=== PATIENT | male | born 2000 | race Caucasian/White ===

== ENCOUNTER 2021-05-11 12:36 | Inpatient (IN) | payer OTHER ==
[~2021-05-11 12:36] MED LIST: Iopamidol 370 76% 50 ML VIAL FS ONE; Iopamidol-370 76% 500 ML 1 ML ONE; Rocuronium Bromide 10 MG/ML (10ML VIAL) ONE
[2021-05-11] MEDS ORDERED: levETIRAcetam in NS 200 ML ONE (12:39)
[2021-05-11] MEDS ORDERED: CEFAZOLIN 1 GM VIAL ONE (12:39)
[2021-05-11] MEDS ORDERED: Midazolam HCl 2 mg/2 ml Vial ONE ×3 (12:47→13:25)
[2021-05-11] MEDS ORDERED: Tranexamic Acid 1,000 MG/10 ML VIAL ONE ×2 (12:54→13:25)
[2021-05-11] MEDS ORDERED: Fentanyl 100 MCG/2 ML VIAL ONE ×4 (12:59→13:41)
[2021-05-11] MEDS ORDERED: Calcium Gluc 4.6 MEQ/10 ML (100 MG/ML) ONE (13:02)
[2021-05-11] MEDS ORDERED: TETANUS AND DIPHTHERIA TOX/PF 0.5 ML DISP.SYRIN IM ONE (13:09)
[2021-05-11] MEDS ORDERED: hydrALAZINE 20 MG/ML VIAL SLOW IVP PRN (13:09)
[2021-05-11] MEDS ORDERED: Morphine 2 MG/ML VIAL SLOW IVP PRN (13:09)
[2021-05-11] MEDS ORDERED: Dextrose 5% in Water 1,000 ML IV PRN (13:09)
[2021-05-11] MEDS ORDERED: Ondansetron PF 4 MG/2 ML Vial IVP PRN (13:09)
[2021-05-11] MEDS ORDERED: Dextrose 50% Abboject 50 ML SYRINGE SLOW IVP PRN (13:09)
[2021-05-11] MEDS ORDERED: fentaNYL Citrate/PF 2,000 MCG in Sodium Chloride 0.9% 60 ML IV PRN (13:12)
[2021-05-11 13:14] LABS: #Eosinphils 0.1 thou/uL (0.0-0.7); #Lymphocytes 2.4 thou/uL (1.20-3.40); #Monocytes 0.6 thou/uL (0.11-0.59); #Neutrophils 13.8 thou/uL (1.40-6.50); %Basophils 0.3 % (0.0-1.0); %Eosinophils 0.3 % (0.0-10.0); %Monocytes 3.6 % (0.0-4.0); %Neutrophils 81.8 % (31.0-61.0); Hemoglobin 14.5 g/dL (14.0-18.0); Mean Corpuscular HGB CONC 34.6 g/dL (32.0-36.0); Mean Corpuscular Hemoglobin 30.5 pg (25.0-35.0); Mean Corpuscular Volume 88.1 fL (78.0-98.0); Mean Platelet Volume 7.8 fL (7.4-10.4); Platelet Count 174 thou/uL (130-400); RBC Distribution Width 11.5 % (11.5-14.5); Red Blood Cell (RBC) Count 4.75 mill/uL (4.00-5.20); White Blood Cell (WBC) Count 16.9 thou/uL (4.8-10.8)
[2021-05-11] MEDS ORDERED: Lidocaine 1% (PF) 30 ML VIAL ONE (13:25)
[2021-05-11 13:27] LABS: ALT (SGPT) 105 U/L (8-55); AST (SGOT) 111 U/L (10-45); Albumin 3.8 g/dL (3.5-5.0); Alkaline Phosphatase 60 U/L (50-130); Anion Gap 15 mmol/L (10-20); BUN (Urea Nitrogen) 13 mg/dL (8.4-21.0); Bilirubin, Total 0.4 mg/dL (0.2-1.2); Calc. Creatinine Clearance 0 mL/min (70-130); Calcium 8.2 mg/dL (7.8-10.44); Carbon Dioxide 22 mmol/L (22-29); Chloride 104 mmol/L (98-107); Globulin 2.3 g/dL (2.4-3.5); Glucose 215 mg/dL (70-105); Lipase 41 U/L (8-78); Protein, Total 6.1 g/dL (6.0-8.3); Sodium 138 mmol/L (136-145)
[2021-05-11] MEDS ORDERED: Fentanyl CADD 100 ML IV SCH (13:30)
[2021-05-11 13:53] LABS: INR-International Normal Ratio 1.1; Prothrombin Time 14.4 sec (12.0-14.7)
[2021-05-11 13:54] LABS: PTT 25.5 sec (22.9-36.1)
[2021-05-11] MEDS ORDERED: Boostrix 0.5 ML (Tdap) VIAL ONE (14:10)
[2021-05-11] MEDS ORDERED: Rocuronium Bromide 10 MG/ML (10ML VIAL) ONE (14:56)
[2021-05-11 15:29] LABS: Actual Bicarbonate (HCO3a) 21.4 mEq/L (22-28); Base Excess (BEa) -2.3 mEq/L (-2.0 to +3.0); CO2 Tension 34.1 mmHg (35.0-45.0); Calcium, Ionized (arterial) 1.14 mmol/L (1.12-1.30); Carboxyhemoglobin (COHb) 0.9 gm% (0.0-3.0); Hemoglobin (Hb) 15.1 g/dL (11.4-15.4); O2 Tension (PaO2), arterial 147.3 mmHg (80.0-100.0); Potassium - ABG Lab 3.68 mmol/L (3.70-5.30); pH, Arterial 7.42 (7.35-7.45)
[2021-05-11 15:31] LABS: ALV-art Gradient 95.275 mmHg (0-20); Puncture Site RRA
[2021-05-11 15:53] LABS: Lactic Acid 2.3 mmol/L (0.5-2.2)
[2021-05-11 17:01] LABS: SARS-CoV-2 NAA Rapid Test Not Detected (NotDetected)
[2021-05-11] MEDS ORDERED: NS 0.9% w/ 20 MEQ KCL 1,000 ML/1,000 ML BAG IV SCH (18:45)
[2021-05-11] MEDS ORDERED: Potassium Chloride 10 MEQ in Premix Bag 1 BAG IVPB SCH (20:00)
[2021-05-11] MEDS: Famotidine/PF 20 mg/2ml Vial SLOW IVP SCH (20:52)
[2021-05-11] MEDS ORDERED: Acetaminophen 650 MG/20.3 ML UDCUP PO SCH (22:15)
[2021-05-12] MEDS: Acetaminophen 650 MG/20.3 ML UDCUP PO SCH ×5 (00:05→23:15)
[2021-05-12 01:30] LABS: Hemoglobin 13.2 g/dL (14.0-18.0)
[2021-05-12] MEDS ORDERED: Sodium Chloride 0.9% 500 ML IV SCH (03:15)
[2021-05-12] MEDS: NS 0.9% w/ 20 MEQ KCL 1,000 ML/1,000 ML BAG IV SCH ×3 (03:18→20:27)
[2021-05-12 04:38] LABS: #Lymphocytes 1.4 thou/uL (1.20-3.40); #Monocytes 1.7 thou/uL (0.11-0.59); #Neutrophils 10.7 thou/uL (1.40-6.50); %Basophils 0.3 % (0.0-1.0); %Eosinophils 0.1 % (0.0-10.0); %Lymphocytes 9.9 % (28.0-48.0); %Monocytes 12.1 % (0.0-4.0); %Neutrophils 77.6 % (31.0-61.0); Hemoglobin 11.5 g/dL (14.0-18.0); Mean Corpuscular HGB CONC 34.2 g/dL (32.0-36.0); Mean Corpuscular Hemoglobin 30.2 pg (25.0-35.0); Mean Corpuscular Volume 88.4 fL (78.0-98.0); Mean Platelet Volume 8.6 fL (7.4-10.4); Platelet Count 169 thou/uL (130-400); RBC Distribution Width 11.4 % (11.5-14.5); White Blood Cell (WBC) Count 13.8 thou/uL (4.8-10.8)
[2021-05-12 04:41] LABS: Lactic Acid 1.2 mmol/L (0.5-2.2)
[2021-05-12 04:57] LABS: Anion Gap 12 mmol/L (10-20); BUN (Urea Nitrogen) 16 mg/dL (8.4-21.0); CK (CPK) 778 U/L (30-200); Calc. Creatinine Clearance 156 mL/min (70-130); Calcium 7.8 mg/dL (7.8-10.44); Carbon Dioxide 24 mmol/L (22-29); Chloride 107 mmol/L (98-107); Glucose 141 mg/dL (70-105); Magnesium 1.7 mg/dL (1.7-2.2); Potassium 4.2 mmol/L (3.5-5.1); Sodium 139 mmol/L (136-145)
[2021-05-12 04:59] LABS: Phosphorus 3.7 mg/dL (2.3-4.7)
[2021-05-12 07:34] LABS: Actual Bicarbonate (HCO3a) 23.4 mEq/L (22-28); Base Excess (BEa) -0.6 mEq/L (-2.0 to +3.0); CO2 Tension 36.2 mmHg (35.0-45.0); Calcium, Ionized (arterial) 1.09 mmol/L (1.12-1.30); Hemoglobin (Hb) 12.1 g/dL (11.4-15.4); O2 Tension (PaO2), arterial 160.9 mmHg (80.0-100.0); Potassium - ABG Lab 4.25 mmol/L (3.70-5.30); pH, Arterial 7.43 (7.35-7.45)
[2021-05-12 07:35] LABS: Puncture Site RRA
[2021-05-12] MEDS: Famotidine/PF 20 mg/2ml Vial SLOW IVP SCH ×2 (07:42→20:34)
[2021-05-12] MEDS ORDERED: Magnesium 2 GM/50 ML 2 GM in Premix Bag 1 BAG IVPB SCH (09:00)
[2021-05-12] MEDS ORDERED: Morphine 4 MG/ML VIAL SLOW IVP PRN ×2 (11:19→11:45)
[2021-05-12] MEDS ORDERED: Morphine 2 MG/ML VIAL SLOW IVP PRN (11:19)
[2021-05-12] MEDS ORDERED: traMADol HCl 50 MG TAB PO PRN (11:24)
[2021-05-12] MEDS ORDERED: traMADol HCl 50 MG TAB PO SCH (11:30)
[2021-05-12] MEDS: Acetaminophen/Codeine 30-300mg Tablet PO PRN (23:17)
[2021-05-13] MEDS: Morphine 4 MG/ML VIAL SLOW IVP PRN (03:07)
[2021-05-13] MEDS: NS 0.9% w/ 20 MEQ KCL 1,000 ML/1,000 ML BAG IV SCH ×3 (03:36→21:47)
[2021-05-13 04:42] LABS: #Eosinphils 0.1 thou/uL (0.0-0.7); #Lymphocytes 1.6 thou/uL (1.20-3.40); %Basophils 0.4 % (0.0-1.0); %Eosinophils 0.6 % (0.0-10.0); %Lymphocytes 16.6 % (28.0-48.0); %Neutrophils 72.4 % (31.0-61.0); Hemoglobin 9.7 g/dL (14.0-18.0); Mean Corpuscular HGB CONC 36.3 g/dL (32.0-36.0); Mean Corpuscular Hemoglobin 32.2 pg (25.0-35.0); Mean Corpuscular Volume 88.6 fL (78.0-98.0); Mean Platelet Volume 8.6 fL (7.4-10.4); Platelet Count 134 thou/uL (130-400); RBC Distribution Width 11.3 % (11.5-14.5); Red Blood Cell (RBC) Count 3.02 mill/uL (4.00-5.20); White Blood Cell (WBC) Count 9.7 thou/uL (4.8-10.8)
[2021-05-13 05:12] LABS: Anion Gap 9 mmol/L (10-20); BUN (Urea Nitrogen) 12 mg/dL (8.4-21.0); CK (CPK) 1083 U/L (30-200); Calc. Creatinine Clearance 188 mL/min (70-130); Calcium 8.1 mg/dL (7.8-10.44); Carbon Dioxide 25 mmol/L (22-29); Chloride 106 mmol/L (98-107); Glucose 130 mg/dL (70-105); Magnesium 1.9 mg/dL (1.7-2.2); Phosphorus 1.4 mg/dL (2.3-4.7); Potassium 3.6 mmol/L (3.5-5.1); Sodium 136 mmol/L (136-145)
[2021-05-13] MEDS: Acetaminophen 650 MG/20.3 ML UDCUP PO SCH ×4 (05:45→21:24)
[2021-05-13] MEDS: Cyclobenzaprine 10 MG TAB PO PRN ×3 (05:51→21:23)
[2021-05-13] MEDS ORDERED: Potassium Phosphate 30 MMOL in Sodium Chloride 0.9% 250 ML 250 ML IVPB SCH (06:00)
[2021-05-13 06:28] VITALS: BMI 28.6
[2021-05-13] MEDS ORDERED: Magnesium 2 GM/50 ML 2 GM in Premix Bag 1 BAG IVPB SCH (08:30)
[2021-05-13] MEDS: Senokot S 8.6-50 MG TAB PO SCH ×2 (08:55→21:23)
[2021-05-13] MEDS: Polyethylene Glycol 3350 17 GM Packet PO SCH (08:55)
[2021-05-13] MEDS: Famotidine 20 MG TAB PO SCH ×2 (08:55→21:23)
[2021-05-13] MEDS: Acetaminophen/Codeine 30-300mg Tablet PO PRN ×3 (09:13→22:37)
[2021-05-14] MEDS: Morphine 4 MG/ML VIAL SLOW IVP PRN (02:53)
[2021-05-14] MEDS: NS 0.9% w/ 20 MEQ KCL 1,000 ML/1,000 ML BAG IV SCH (02:54)
[2021-05-14 03:51] LABS: #Lymphocytes 1.2 thou/uL (1.20-3.40); #Monocytes 0.9 thou/uL (0.11-0.59); #Neutrophils 4.7 thou/uL (1.40-6.50); %Basophils 0.7 % (0.0-1.0); %Eosinophils 0.7 % (0.0-10.0); %Lymphocytes 17.3 % (28.0-48.0); %Neutrophils 68.3 % (31.0-61.0); Hemoglobin 9.6 g/dL (14.0-18.0); Mean Corpuscular HGB CONC 35.9 g/dL (32.0-36.0); Mean Corpuscular Hemoglobin 31.6 pg (25.0-35.0); Mean Corpuscular Volume 87.8 fL (78.0-98.0); Mean Platelet Volume 8.5 fL (7.4-10.4); Platelet Count 146 thou/uL (130-400); RBC Distribution Width 11.1 % (11.5-14.5); Red Blood Cell (RBC) Count 3.05 mill/uL (4.00-5.20); White Blood Cell (WBC) Count 6.9 thou/uL (4.8-10.8)
[2021-05-14 04:08] LABS: Anion Gap 9 mmol/L (10-20); BUN (Urea Nitrogen) 7 mg/dL (8.4-21.0); CK (CPK) 924 U/L (30-200); Calc. Creatinine Clearance 211 mL/min (70-130); Calcium 8.8 mg/dL (7.8-10.44); Carbon Dioxide 29 mmol/L (22-29); Chloride 104 mmol/L (98-107); Glucose 113 mg/dL (70-105); Magnesium 1.8 mg/dL (1.7-2.2); Phosphorus 2.3 mg/dL (2.3-4.7); Potassium 3.2 mmol/L (3.5-5.1); Sodium 139 mmol/L (136-145)
[2021-05-14] MEDS: Acetaminophen 650 MG/20.3 ML UDCUP PO SCH (05:27)
[2021-05-14] MEDS: Cyclobenzaprine 10 MG TAB PO PRN (05:27)
[2021-05-14] MEDS: Acetaminophen/Codeine 30-300mg Tablet PO PRN (05:29)
[2021-05-14 07:24] VITALS: TEMP 97.9
[2021-05-14] MEDS: Senokot S 8.6-50 MG TAB PO SCH (08:02)
[2021-05-14] MEDS: Polyethylene Glycol 3350 17 GM Packet PO SCH (08:02)
[2021-05-14] MEDS: Famotidine 20 MG TAB PO SCH (08:02)
[2021-05-14] MEDS ORDERED: Ascorbic Acid 500 mg Chewable Tablet PO SCH (08:45)
[2021-05-14] MEDS ORDERED: Ferrous Sulfate 325 MG TAB PO SCH ×2 (08:45→17:00)
[2021-05-14] MEDS ORDERED: FLU VACC QS2021-22(6MOS UP)/PF 60 MCG/0.5 ML SYRINGE IM ONE (09:00)
[2021-05-14] MEDS ORDERED: Potassium Phosphate 30 MMOL, Magnesium Sulfate 2 GM in Sodium Chloride 0.9% 250 ML IVPB SCH (09:00)
[2021-05-14] MEDS ORDERED: Magnesium Sulfate 2 GM in Sodium Chloride 0.9% 100 ML IVPB SCH (09:00)
[2021-05-14] MEDS ORDERED: Prevnar 13-Val Conj/PF 0.5 ML SYRINGE IM ONE (11:15)
[2021-05-14 11:51] VITALS: BP 156/105
[2021-05-14] MEDS ORDERED: Acetaminophen 650 MG/20.3 ML UDCUP PO SCH (12:00)
[2021-05-15] MEDS ORDERED: Ascorbic Acid 500 mg Chewable Tablet PO SCH (08:00)
[2021-05-15] MEDS ORDERED: Mening Vac A,C,Y,W-135 Dip/PF 1 EACH KIT IM ONE (11:15)
[2021-05-16] MEDS ORDERED: Haemoph B Poly Conj-Tet Tox/PF 10 MCG/0.5 ML VIAL IM ONE (11:15)
== END 2021-05-14 16:54 | DRG 957 ==
LOC: EDBD 12:36 → ERS 12:36 → SURG A 13:53 → CCU 14:38 → IMCU/EMU 05-13 17:32
PROVIDERS: ADMIT Surgery; ATTEND Surgery
PROC: 04L43DZ Occlusion of Splenic Artery with Intraluminal Device, Percutaneous Approach (ICD-10-PCS; principal; 2021-05-11)
PROC: 5A1945Z Respiratory Ventilation, 24-96 Consecutive Hours (ICD-10-PCS; 2021-05-11)
PROC: 30233N1 Transfusion of Nonautologous Red Blood Cells into Peripheral Vein, Percutaneous Approach (ICD-10-PCS; 2021-05-11)
PROC: 30233K1 Transfusion of Nonautologous Frozen Plasma into Peripheral Vein, Percutaneous Approach (ICD-10-PCS; 2021-05-11)
PROC: B41B1ZZ Fluoroscopy of Other Intra-Abdominal Arteries using Low Osmolar Contrast (ICD-10-PCS; 2021-05-11)
PROC: B4131ZZ Fluoroscopy of Splenic Arteries using Low Osmolar Contrast (ICD-10-PCS; 2021-05-11)
PROC: 02HV33Z Insertion of Infusion Device into Superior Vena Cava, Percutaneous Approach (ICD-10-PCS; 2021-05-11)
PROC: 0D9670Z Drainage of Stomach with Drainage Device, Via Natural or Artificial Opening (ICD-10-PCS; 2021-05-11)
PROC: 0BH17EZ Insertion of Endotracheal Airway into Trachea, Via Natural or Artificial Opening (ICD-10-PCS; 2021-05-11)
DX: S36.032A Major laceration of spleen, initial encounter (principal); S06.5X9A Traumatic subdural hemorrhage with loss of consciousness of unspecified duration, initial encounter; J96.01 Acute respiratory failure with hypoxia; T79.4XXA Traumatic shock, initial encounter; J96.00 Acute respiratory failure, unspecified whether with hypoxia or hypercapnia; S32.592A Other specified fracture of left pubis, initial encounter for closed fracture; S12.100A Unspecified displaced fracture of second cervical vertebra, initial encounter for closed fracture; S22.41XA Multiple fractures of ribs, right side, initial encounter for closed fracture; S02.40CA Maxillary fracture, right side, initial encounter for closed fracture; S02.31XA Fracture of orbital floor, right side, initial encounter for closed fracture; S02.841A Fracture of lateral orbital wall, right side, initial encounter for closed fracture; G93.1 Anoxic brain damage, not elsewhere classified; D62 Acute posthemorrhagic anemia; E87.2 Acidosis; S27.0XXA Traumatic pneumothorax, initial encounter; S27.321A Contusion of lung, unilateral, initial encounter; R56.1 Post traumatic seizures; Z23 Encounter for immunization; Z20.822 Contact with and (suspected) exposure to COVID-19; E87.6 Hypokalemia; T79.6XXA Traumatic ischemia of muscle, initial encounter; R40.2362 Coma scale, best motor response, obeys commands, at arrival to emergency department; R40.2132 Coma scale, eyes open, to sound, at arrival to emergency department; R40.2242 Coma scale, best verbal response, confused conversation, at arrival to emergency department; E83.42 Hypomagnesemia; E83.39 Other disorders of phosphorus metabolism; V43.52XA Car driver injured in collision with other type car in traffic accident, initial encounter; Y92.410 Unspecified street and highway as the place of occurrence of the external cause; Z78.1 Physical restraint status
CPT/HCPCS: 36245; 36415; 36430; 36600; 37244; 70450; 70486; 71045; 71260; 72125; 72170; 74177; 80048; 80053; 82550; 82805; 83605; 83690; 83735; 84100; 84146; 85025; 85610; 85730; 86850; 86900; 86901; 90715; 94002; 99152; G0390; J0610; J0690; J1953; J2001; J2250; J2270; J3010; J3475; J3480; J7030; J7050; P9016; P9048; P9059; Q9967; S0028; U0002